=== PATIENT | male | born 1970 | race Caucasian/White ===

== ENCOUNTER 2018-10-01 10:37 | Emergency (ER) | payer BC, OTHER ==
[2018-10-01] MEDS ORDERED: Morphine 4 MG/ML VIAL ONE (11:19)
--- NOTE | 2018-10-01 12:07 | CT ---
CT LUMBAR SPINE: HISTORY: Trauma, back pain. FINDINGS: Axial images are obtained with coronal a sagittal reconstructions. CT images demonstrate acute right L1 and L2 transverse process fractures. No other acute abnormality is seen. There is a mild broad-based disk bulge at L4-5. Mild facet hypertrophy is seen. IMPRESSION: Right L1 and L2 transverse process fractures. POS: [facility]
[2018-10-01] MEDS ORDERED: HYDROcodone/Acetaminophen 10/325 mg Tablet ONE (12:43)
== END 2018-10-01 12:53 | disposition home or self-care (01) ==
LOC: ERS 10:37
DX: S32.019A Unspecified fracture of first lumbar vertebra, initial encounter for closed fracture (principal); S32.029A Unspecified fracture of second lumbar vertebra, initial encounter for closed fracture; E11.9 Type 2 diabetes mellitus without complications; Z79.84 Long term (current) use of oral hypoglycemic drugs; W17.89XA Other fall from one level to another, initial encounter
CPT/HCPCS: 72131; 96372; J2270